=== PATIENT | male | born 1985 | race Caucasian/White ===

== ENCOUNTER 2021-03-03 20:40 | Emergency (ER) | payer MEDICAID ==
[~2021-03-03] VITALS: Ht 172.7 cm; Wt 83.0 kg
[2021-03-03 20:52] VITALS: BP 154/94
--- NOTE | 2021-03-03 20:57 | NUR ---
PATIENT AMBUALTED TO LOBBY WITH STEADY GAIT.
--- NOTE | 2021-03-03 23:06 | NUR ---
SEE COMPLETE ASSESSMENT.
[2021-03-04] MEDS ORDERED: CLOT1CRE90 TP (00:07)
--- NOTE | 2021-03-04 00:12 | NUR ---
PT AMBULATED TO RESTROOM WITH EVEN AND STEADY GAIT.
[2021-03-04 00:27] VITALS: BP 147/84
--- NOTE | 2021-03-04 00:27 | NUR ---
Patient discharged with v/s stable. Written and verbal after care instructions given and explained. Patient alert, oriented and verbalized understanding of instructions. Ambulatory with steady gait. All questions addressed prior to discharge. ID band removed. Patient advised to follow up with PMD. Rx of CLOTRIMAZOLE given. Patient educated on indication of medication including possible reaction and side effects. Opportunity to ask questions provided and answered.
== END 2021-03-04 00:27 | disposition home or self-care (01) ==
LOC: MED 20:40
DX: B35.6 Tinea cruris (principal); F32.9 Major depressive disorder, single episode, unspecified; F41.9 Anxiety disorder, unspecified; Z79.899 Other long term (current) drug therapy
CPT/HCPCS: 36415; 81002; 87491; 99283

== ENCOUNTER 2021-05-05 16:42 | Emergency (ER) | payer MEDICAID ==
[~2021-05-05] VITALS: Ht 170.2 cm; Wt 88.9 kg
[~2021-05-05 16:42] MED LIST: CLOT1CRE90 TP
[2021-05-05 16:52] VITALS: BP 147/104
--- NOTE | 2021-05-05 17:03 | NUR ---
pt ambulated to room 12
--- NOTE | 2021-05-05 17:10 | NUR ---
35YO M, WITH HX OF SYPHILIS, C/O PAINLESS LESION ON PENILE SHAFT 2 WEEKS AGO. DENIES DISCHARGE, DENIES DYSURIA, DENIES FEVER. PT STATED LAST ENCOUNTER OF UNPROTECTED SEX WAS IN NOVEMBER AND LAST SEXUAL ENCOUNTER WAS LAST MONTH. PMH: SYPHILIS (2016), DEPRESSION/ANXIETY MEDS: SERTRALINE, ATIVAN, BUSPIRONE, TOPOMAX NKA
--- NOTE | 2021-05-05 17:27 | NUR ---
DR. PICHARDO BEDSIDE EVALUATING PT
[2021-05-05] MEDS ORDERED: DOXYCYCLINE 100 MG CAP PO SCH (17:35)
[2021-05-05] MEDS ORDERED: cefTRIAXone 500 MG in LIDOCAINE MPF 1% 1 ML IM ONE (17:35)
[2021-05-05] MEDS ORDERED: cefTRIAXone 500 MG VIAL ONE (17:43)
[2021-05-05] MEDS ORDERED: LIDOCAINE MPF 1% 5 ML ONE (17:44)
[2021-05-05] MEDS ORDERED: IMIQ1CRE TP (18:02)
[2021-05-05] MEDS ORDERED: VIB100 PO (18:02)
[2021-05-05 18:20] VITALS: BP 147/104
--- NOTE | 2021-05-05 18:21 | NUR ---
Patient discharged with v/s stable. Written and verbal after care instructions given and explained. Patient alert, oriented and verbalized understanding of instructions. Ambulatory with steady gait. All questions addressed prior to discharge. ID band removed. Patient advised to follow up with PMD. Rx of Imiquimod, Doxycycline was given. Patient educated on indication of medication including possible reaction and side effects. Opportunity to ask questions provided and answered.
== END 2021-05-05 18:21 | disposition home or self-care (01) ==
LOC: MED 16:42
DX: A63.0 Anogenital (venereal) warts (principal); F32.9 Major depressive disorder, single episode, unspecified; F41.9 Anxiety disorder, unspecified; Z11.3 Encounter for screening for infections with a predominantly sexual mode of transmission
CPT/HCPCS: 36415; 81002; 87491; 96372; 99283; J0696; J2001

== ENCOUNTER 2021-05-21 01:49 | Emergency (ER) | payer MEDICAID ==
[~2021-05-21] VITALS: Ht 170.2 cm; Wt 91.2 kg
[~2021-05-21 01:49] MED LIST changes: +IMIQ1CRE TP; +VIB100 PO
[2021-05-21 01:54] VITALS: BP 135/90
--- NOTE | 2021-05-21 02:36 | NUR ---
ERMD AT BEDSIDE FOR EXAMINATION
[2021-05-21] MEDS ORDERED: ACYC400T14 PO (02:53)
[2021-05-21 02:55] LABS: APPEARANCE,URINE CLEAR (CLEAR); BILIRUBIN,URINE NEGATIVE (NEGATIVE); BLOOD, URINE NEGATIVE (NEGATIVE); COLOR,URINE YELLOW (YELLOW); LEUKOCYTE ESTERASE ,URINE NEGATIVE (NEGATIVE); NITRITE, URINE NEGATIVE (NEGATIVE); PH,URINE 7.5 (5.0-9.0); UGLUCOSE NEGATIVE (NEGATIVE)
[2021-05-21 03:17] VITALS: BP 135/90
--- NOTE | 2021-05-21 03:18 | NUR ---
Patient discharged with v/s stable. Written and verbal after care instructions given and explained. Patient alert, oriented and verbalized understanding of instructions. Ambulatory with steady gait. All questions addressed prior to discharge. ID band removed. Patient advised to follow up with PMD. Rx of ACYCLOVIR given. Patient educated on indication of medication including possible reaction and side effects. Opportunity to ask questions provided and answered.
--- NOTE | 2021-05-21 03:18 | NUR ---
ERMD ASSESSED PT, NO NURSING INTERVENTIONS NEEDED
== END 2021-05-21 03:18 | disposition home or self-care (01) ==
LOC: MED 01:49
DX: N48.9 Disorder of penis, unspecified (principal); Z79.899 Other long term (current) drug therapy
CPT/HCPCS: 36415; 81003; 87491; 99283

== ENCOUNTER 2021-12-28 20:59 | Emergency (ER) | payer MEDICAID ==
[~2021-12-28] VITALS: Ht 170.2 cm; Wt 86.4 kg
[~2021-12-28 20:59] MED LIST changes: +ACYC400T14 PO
[2021-12-28 21:26] VITALS: BP 138/74
--- NOTE | 2021-12-28 21:31 | NUR ---
PT TAKEN TO LOBBY.
--- NOTE | 2021-12-28 22:07 | NUR ---
PT AMBULATED TO BED #4
--- NOTE | 2021-12-28 22:38 | NUR ---
ER MD AT BEDSIDE EXAMINING PT
--- NOTE | 2021-12-28 22:45 | NUR ---
36 Y/O MALE BIBS FROM HOME, C/O 02/27 EAR ACHE. +COUGH, CONGESTION, RUNNY NOSE, SNEEZING XLAST WEEK. PT STATES HIS RT TESTICLE IS RED, NO PAIN, NO DISCHARGE, AND NO CHANGES IN URINATION. STATES HE HAS ITCHING ON BILAT INNER THIGHS, POST INNER THIGH HAS A BOIL, WENT TO URGENT FOR TREATMENT. UNLABORED BREATHING; SPEAKING IN FULL SENTENCES; A/OX4, GCS-15; AMBULATES W/O ASSISTANCE. SEATED IN BED W/ HOB RAISED AND BED IN LOWEST SETTING, RAIL UP X1. DENIES HX, RX AND ALLERGIES
[2021-12-28 23:30] VITALS: BP 138/74
--- NOTE | 2021-12-28 23:31 | NUR ---
Patient discharged with v/s stable. Written and verbal after care instructions given and explained. Patient verbalized understanding. Ambulatory with steady gait. All questions addressed prior to discharge. Advised to follow up with PMD. A/OX4, VSS, UNLABORED BREATHING, AMBULATORY, AND CALM DEMEANOR.
== END 2021-12-28 23:30 | disposition home or self-care (01) ==
LOC: MED 20:59
DX: J02.9 Acute pharyngitis, unspecified (principal); H92.03 Otalgia, bilateral; R05.9 Cough, unspecified; Z79.899 Other long term (current) drug therapy
CPT/HCPCS: 99281; 99282

== ENCOUNTER 2023-01-11 06:10 | Emergency (ER) | payer MEDICAID ==
[~2023-01-11] VITALS: Ht 170.2 cm; Wt 84.4 kg
[2023-01-11 06:18] VITALS: BP 155/81
--- NOTE | 2023-01-11 06:35 | NUR ---
MD Dejesus at bedside examining at bedside.
[2023-01-11] MEDS ORDERED: KETOROLAC 60 MG/2 ML VIAL IM ONE (06:40)
--- NOTE | 2023-01-11 06:40 | NUR ---
Pt ambulatory from home with c/o headache associated with nausea. Denies vomiting, fevers. PMH: HIV A: NKDA
[2023-01-11 06:48] VITALS: BP 126/79
--- NOTE | 2023-01-11 07:09 | NUR ---
PT TAKEN TO CT
--- NOTE | 2023-01-11 07:18 | NUR ---
PATIENT RETURNED FROM CT
[2023-01-11] MEDS ORDERED: TRAM-748 PO (07:41)
== END 2023-01-11 08:08 | disposition home or self-care (01) ==
LOC: MED 06:10
DX: R51.9 Headache, unspecified (principal); Z79.899 Other long term (current) drug therapy; Z79.2 Long term (current) use of antibiotics
CPT/HCPCS: 70450; 96372; 99285; J1885